=== PATIENT | male | born 1955 | race Caucasian/White ===

== ENCOUNTER 2018-05-27 08:38 | Day surgery (SDC) | payer BC ==
[~2018-05-27 08:38] MED LIST: MIDAZOLAM INJ 2 MG/2 ML VIAL (J2250) As Ordered; fentaNYL 100 MCG/2 ML INJECTION (J3010) As Ordered
[2018-05-27] MEDS: PHENYLEPHRINE 2.5% OPHTH SOL 2ML OS (09:39)
[2018-05-27] MEDS: TROPICAMIDE 1% OPHTH SOLN 2ML OS (09:39)
[2018-05-27] MEDS: OFLOXACIN 0.3 % (OCUFLOX) OPTH SOL 5ML OS (09:39)
[2018-05-27] MEDS: PROPARACAINE 0.5% OPHTH SOL 15ML OS (09:40)
[2018-05-27] MEDS: POVIDONE-IODINE 5% OPHTH PREP SOL 30ML As Ordered (10:44)
[2018-05-27] MEDS: LIDOCAINE 0.75%/EPINEPHRINE 0.025% IN BSS 1ML SYR INTRACAMERAL (OR ONLY) As Ordered (10:46)
[2018-05-27] MEDS: MOXIFLOXACIN IN BSS 0.25MG/0.25ML INTRACAMERAL INJ (OR EYE ONLY)(J2280) As Ordered (10:46)
[2018-05-27] MEDS: BALANCED SALT IRRIGATION SOLUTION 500ML BAG (FOR OR EYE MACHINE) As Ordered (10:46)
[2018-05-27] MEDS: DUOVISC (0.50ML VISCOAT/0.55ML PROVISC) OPHTH KIT As Ordered (10:46)
[2018-05-27] MEDS ORDERED: ONDANSETRON 4MG/2ML VIAL (J2405) IV (11:15)
[2018-05-27] MEDS ORDERED: ACETAMINOPHEN TAB 650MG DOSE (2X325MG) PO (11:15)
== END 2018-05-27 11:33 | disposition home or self-care (01) ==
LOC: M SDC 08:38
DX: H25.12 Age-related nuclear cataract, left eye (principal); I10 Essential (primary) hypertension; E78.5 Hyperlipidemia, unspecified; Z79.899 Other long term (current) drug therapy; Z88.8 Allergy status to other drugs, medicaments and biological substances
CPT/HCPCS: 66984